=== PATIENT | male | born 1970 | race Caucasian/White ===

== ENCOUNTER → 2016-09-19 | Outpatient (CLI) | payer BC, OTHER | LOC: FIMAGING 13:17 | PROVIDERS: ATTEND Family Medicine | DX: M50.222 Other cervical disc displacement at C5-C6 level (principal); M54.2 Cervicalgia ==

== ENCOUNTER → 2016-11-10 | Outpatient (CLI) | payer BC ==
--- NOTE | 2016-11-11 04:19 | CPEEG ---
[f rep st] ELECTROENCEPHALOGRAM DATE OF STUDY: 11/10/2016 INTERPRETATION: This EEG contains a mild degree of focal slowing and asymmetry over the right poste rior temporal head regions. These findings would be consistent with a mild focal disturbance of cer ebral function in these regions. There was no potentially epileptogenic abnormalities present in th e awake or sleep recordings. REPORT: This EEG contains 9-10 Hz alpha activity over the posterior head regions. There was a mild degree of focal low-amplitude polymorphic theta slowing over the right posterior temporal head kiran on with asymmetry, increased amplitudes (on the right versus the left). There was no abnormal epile ptiform activation at rest, during photic stimulation, or hyperventilation. The patient became drow sy and fell asleep during the study. There was no abnormal activation during drowsiness, sleep, or during times of arousal. /[id number]/MODL
== END ==
LOC: FCPNEURO 12:40
PROVIDERS: ATTEND Psychiatry & Neurology Neurology
DX: R29.818 Other symptoms and signs involving the nervous system (principal)

== ENCOUNTER → 2016-11-15 | Outpatient (CLI) | payer BC ==
[~2016-11-15] MED LIST: IOPAMIDOL (ISOVUE 370) 100 ML BTL IV ONE
== END ==
LOC: FIMAGING 10:12
PROVIDERS: ATTEND Psychiatry & Neurology Neurology
DX: R29.818 Other symptoms and signs involving the nervous system (principal); R20.0 Anesthesia of skin; R47.9 Unspecified speech disturbances
CPT/HCPCS: Q9967

== ENCOUNTER 2016-12-29 08:37 | Day surgery (SDC) | payer BC ==
[2016-12-29 09:05] LABS: HEMATOCRIT 45.2 % (40.0-51.0); HEMOGLOBIN 15.9 g/dL (13.7-17.5); MEAN CELL HEMOGLOBIN 31.1 pg (27.9-34.1); MEAN CELL HEMOGLOBIN CONCENTR. 35.2 g/dL (32.4-36.7); MEAN CELL VOLUME 88.5 fL (81.5-99.8); RED BLOOD CELL COUNT 5.11 10^6/uL (4.40-6.38); RED CELL DISTRIBUTION WIDTH 11.9 % (11.5-15.2)
[2016-12-29 09:48] LABS: ANION GAP 16 mEq/L (8-16); CALCIUM 9.8 mg/dL (8.5-10.4); CARBON DIOXIDE 26 mEq/l (22-31); CHLORIDE 100 mEq/L (97-110); CREATININE 0.8 mg/dL (0.7-1.3); GLOMERULAR FILTRATION RATE > 60; GLUCOSE 90 mg/dL (70-100); POTASSIUM 4.2 mEq/L (3.5-5.2); SODIUM 142 mEq/L (134-144)
--- NOTE | 2016-12-29 10:14 | PDGENHP ---
History & Physical Chief Complaint: Neurologic symptoms of difficulty with speech History of Present Illness: Mr. Cobian presents for CORTEZ in the setting of recent onset of difficult speech. He was seen in consultation by Dr. Barfield of Neurology. No clear eitiology of symptoms. CORTEZ today to asses for cardiac eitiology. Pertinent Past, Social, Family History: No significant past medical history. Non smoker. No family hx of CVA Relevant Physical Exam: Awake, Alert Appropriate. CTAB. S1/S2 regular, no m, r ,g Cardiorespiratory Assessment: Normal exam
--- NOTE | 2016-12-29 10:16 | PDPROPOC ---
Sedation Plan of Care Sedation Plan of Care: vital signs stable, mental status noted, patient educated of risks, benefits, alternatives, patient can tolerate sedation ASA Classification: ASA 2 Planned drugs: other (Propofol administered by Anesthesiology) Mallampati Score: Class 1 Mallampati Reference Image: Patient passed 3-3-2 rule?: Yes
--- NOTE | 2016-12-29 10:22 | PDANEPAE ---
ANE History of Present Illness here for CORTEZ for TIA symptoms ANE Past Medical History - Cardiovascular History Hx Hypertension: No Hx Arrhythmias: No Hx Chest Pain: No Hx Coronary Artery / Peripheral Vascular Disease: No Hx CHF / Valvular Disease: No Hx Palpitations: No - Pulmonary History Hx COPD: No Hx Asthma/Reactive Airway Disease: No Hx Recent Upper Respiratory Infection: No Hx Oxygen in Use at Home: No Hx Sleep Apnea: No - Neurologic History Hx Cerebrovascular Accident: No Hx Seizures: No Hx Dementia: No Neurologic History Comment: history of TIA - Endocrine History Hx Diabetes: No Hypothyroid: No Hyperthyroid: No Obesity: no - Renal History Hx Renal Disorders: No - Liver History Hx Hepatic Disorders: No - Neurological & Psychiatric Hx Hx Neurological and Psychiatric Disorders: No - Cancer History Hx Cancer: No - Congenital Disorder History Hx Congenital Disorders: No - Other Health History Other Health History: chronic cervical neck pain ANE Review of Systems Review of systems is: negative Review of Systems: - Exercise capacity Exercise capacity: >=4 METS ANE Patient History - Allergies Allergies/Adverse Reactions: No Known Allergies Allergy (Verified 03/31/12 01:11) - Home Medications Home medications: home medication list seen and reviewed Home Medications: No Medications [No Meds] 1 ea MISC 03/31/12 [Last Taken Unknown] - Anes Hx Anes Hx: no prior problems - Smoking Hx Smoking Status: Never smoked ANE Labs/Vital Signs - Labs Result Diagrams: 12/29/16 09:00 12/29/16 09:00 - Vital Signs Height: 180 cm Weight: 81.6 kg ANE Physical Exam - Airway Neck exam: FROM Mallampati Score: Class 1 - Pulmonary Pulmonary: no respiratory distress - Cardiovascular Cardiovascular: regular rate and rhythym - ASA Status ASA Status: II ANE Anesthesia Plan Anesthesia Plan: GA with mask
[2016-12-29] MEDS ORDERED: PROPOFOL 200 MG/20 ML VIAL ONE ×3 (10:24→10:51)
--- NOTE | 2016-12-29 12:28 | POSTANESTH ---
Post Anesthetic Evaluation Cardiovascular Status: Normal, Stable Respiratory Status: Normal, Stable Level of Consciousness/Mental Status: Can Participate in Eval Pain Control: Adequate, Prn Tx Ordered Nausea/Vomiting Control: Adequate, Prn Tx Ordered Complications Possibly Related to Anesthesia: None Noted
[2016-12-29 13:14] VITALS: BP 106/76; RESP 18; O2SAT 96
--- NOTE | 2016-12-29 13:33 | CPR ---
[f rep st] NONINVASIVE CARDIAC PROCEDURE REPORT DATE OF PROCEDURE: 12/29/2016 PROCEDURE PERFORMED: Transesophageal echocardiogram. INDICATION FOR PROCEDURE: TIA-like symptoms of slurred speech. PROCEDURE: After informed consent was obtained, the patient was brought to the cardiac procedure [facility] where he was consented for both CORTEZ and anesthesia. Preliminary lab work demonstrated normal CBC a nd comprehensive metabolic panel. The risks and benefits were reviewed in detail with the patient. There are no contraindications to p rocedure. A bite block was in place. Patient received supplemental oxygen via nasal cannula, and sedation was performed using propofol. Once appropriate level of sedation was applied, the patient underwent succ essful intubation with CORTEZ probe. Images were obtained of all cardiac structures. Agitated saline c ontrast study was performed. There is no evidence of cardiac source of his neurologic symptoms. There is no evidence of patent fo [place] or atrial septal defect with negative agitated saline contrast study. Please see complete 2D echocardiogram report for details. CONCLUSION: 1. Normal left ventricular size and function. Normal atrial dimensions. 2. Interatrial septum intact. 3. Negative agitated saline contrast study. Left atrial appendage is free of thrombus. PLAN: 1. I have reviewed the images with the patient. He is scheduled for followup with Dr. Lesly Barfield. 2. Consider [employer] implantable loop recorder if no neurologic cause of his symptoms has been iden tified. /[id number]/MODL
== END 2016-12-29 12:00 | disposition home or self-care (01) ==
LOC: FCATH 08:37
PROVIDERS: ATTEND Internal Medicine Cardiovascular Disease
PROC: B245ZZ4 Ultrasonography of Left Heart, Transesophageal (ICD-10-PCS; principal; 2016-12-29)
DX: R90.89 Other abnormal findings on diagnostic imaging of central nervous system (principal); R47.9 Unspecified speech disturbances; R20.0 Anesthesia of skin; R29.818 Other symptoms and signs involving the nervous system; M54.2 Cervicalgia
CPT/HCPCS: J2704